=== PATIENT | female | born 1955 | race Two or more races ===

== ENCOUNTER 2018-06-20 12:56 | Inpatient (IN) | payer MEDICAID, OTHER | END 2018-06-26 18:30 | disposition home or self-care (01) | LOC: ER 12:56 → TELE 16:38 → TELE-WESTW 18:30 | DX: A41.9 Sepsis, unspecified organism (principal); K83.09 Other cholangitis; K85.10 Biliary acute pancreatitis without necrosis or infection; K80.00 Calculus of gallbladder with acute cholecystitis without obstruction; E44.0 Moderate protein-calorie malnutrition; R65.10 Systemic inflammatory response syndrome (SIRS) of non-infectious origin without acute organ dysfunction; E66.9 Obesity, unspecified; R73.9 Hyperglycemia, unspecified; Z68.30 Body mass index [BMI] 30.0-30.9, adult; N39.0 Urinary tract infection, site not specified; N18.3 Chronic kidney disease, stage 3 (moderate); E87.6 Hypokalemia ==

== ENCOUNTER 2018-07-27 01:44 | Inpatient (IN) | payer MEDICAID ==
[~2018-07-27] VITALS: Ht 152.4 cm; Wt 71.1 kg
[~2018-07-27 01:44] MED LIST: ACET-1156 PO
[2018-07-27 02:35] LABS: Basophils # (auto) 0 uL; Basophils % (auto) 0.5 % (0.0-2.0); Eosinophils # (auto) 0.1 uL; Eosinophils % (auto) 0.9 % (0.0-7.0); Hematocrit 36.3 % (36.0-46.0); Hemoglobin 12.2 g/dL (12.2-16.2); Lymphocytes # (auto) 2.5 uL; Lymphocytes % (auto) 33.6 % (10.0-50.0); Mean Corpuscular Hemoglobin 29.8 pg (28.0-32.0); Mean Corpuscular Hgb Conc. 33.7 g/dL (32.0-36.0); Mean Corpuscular Volume 88.3 fL (80.0-100.0); Monocytes # (auto) 0.3 uL; Monocytes % (auto) 4.4 % (0.0-12.0); Neutrophils # (auto) 4.4 uL; Neutrophils % (auto) 60.6 % (37.0-80.0); Nucleated Red Blood Cells % 0.1 %; Platelet Count (auto) 342 10^3/uL (140-450); Red Blood Cells 4.11 10^6/uL (4.0-5.20); Red Cell Distribution Width 15.5 % (11.8-14.3); White Blood Cell 7.3 10^3/uL (4.4-10.8)
[2018-07-27 02:52] LABS: Albumin 3.3 g/dL (3.4-5.0); Amylase 49 U/L (25-115); Anion Gap 10 (5-15); Blood Urea Nitrogen 15 mg/dL (7-18); Calcium 9.1 mg/dL (8.5-10.1); Carbon Dioxide 25 mmol/L (21-32); Chloride 104 mmol/L (98-107); Glucose 139 mg/dL (74-106); Lipase 294 U/L (73-393); Potassium 4.2 mmol/L (3.5-5.1); Sodium 139 mmol/L (136-145)
[2018-07-27 02:54] LABS: Alanine Aminotransferase 327 U/L (13-56); Aspartate Aminotransferase 681 U/L (15-37); BUN/Creatinine Ratio 18.1; GFR African American 89 mL/min; GFR Non-African American 74 mL/min
[2018-07-27 03:03] LABS: Alkaline Phosphatase 107 U/L (45-117); Bilirubin, Total 0.9 mg/dL (0.2-1.0); Total Protein 8.8 g/dL (6.4-8.2)
[2018-07-27] MEDS ORDERED: MORPHINE SULFATE 4 MG/ML SYR/VIAL IV ONE (06:00)
[2018-07-27] MEDS ORDERED: SODIUM CHLORIDE 0.9% 1,000 ML IV ONE (06:00)
[2018-07-27] MEDS ORDERED: ONDANSETRON HCL 4 MG/2 ML VIAL IV ONE (06:00)
[2018-07-27] MEDS ORDERED: HYDROmorphone HCL 2 MG/ML VL IV PRN (08:30)
[2018-07-27] MEDS ORDERED: ACETAMINOPHEN 325 MG TAB PO PRN (08:30)
[2018-07-27] MEDS ORDERED: ONDANSETRON HCL 4 MG/2 ML VIAL IV PRN (08:30)
[2018-07-27] MEDS ORDERED: MORPHINE SULF INJ 2 MG/ML SYRINGE 1ML IV PRN (08:30)
[2018-07-27] MEDS ORDERED: NITROGLYCERIN 0.4 MG SL TAB SL PRN (08:30)
[2018-07-27] MEDS ORDERED: IOHEXOL 300 MG/ML 100ML BOTTLE IJ ONE (08:48)
[2018-07-27] MEDS: D5W/SOD CHL 0.45%/KCL 20MEQ 1,000 ML IV SCH ×2 (09:16→18:30)
[2018-07-27 11:14] VITALS: BP 115/68
[2018-07-27] MEDS: LEVOFLOXACIN 750MG 150 ML IV SCH (11:52)
[2018-07-27] MEDS ORDERED: PROMETHAZINE HCL 25 MG/ML 1ML IV PRN (14:00)
[2018-07-27 14:05] VITALS: BP 115/68
[2018-07-27] MEDS: metroNIDAZOLE 500MG/100ML 100 ML IV SCH ×2 (14:18→22:24)
[2018-07-27 17:11] VITALS: BP 131/80
[2018-07-27 18:07] LABS: CRP High Sensitivity 0.92 mg/dL (< 0.3)
[2018-07-27] MEDS: MORPHINE SULFATE 4 MG/ML SYR/VIAL IV PRN (20:53)
[2018-07-27 22:00] VITALS: BP 121/68
[2018-07-28] MEDS: MORPHINE SULFATE 4 MG/ML SYR/VIAL IV PRN ×3 (02:49→21:19)
[2018-07-28] MEDS: D5W/SOD CHL 0.45%/KCL 20MEQ 1,000 ML IV SCH ×2 (05:50→16:46)
[2018-07-28] MEDS: metroNIDAZOLE 500MG/100ML 100 ML IV SCH ×3 (05:50→21:34)
[2018-07-28 06:06] VITALS: BP 108/67
[2018-07-28 06:09] LABS: Basophils # (auto) 0 uL; Basophils % (auto) 0.3 % (0.0-2.0); Eosinophils # (auto) 0 uL; Eosinophils % (auto) 0.4 % (0.0-7.0); Hemoglobin 9.9 g/dL (12.2-16.2); Lymphocytes # (auto) 1.3 uL; Lymphocytes % (auto) 23.6 % (10.0-50.0); Mean Corpuscular Hemoglobin 29.6 pg (28.0-32.0); Mean Corpuscular Hgb Conc. 33.1 g/dL (32.0-36.0); Mean Corpuscular Volume 89.5 fL (80.0-100.0); Monocytes # (auto) 0.2 uL; Neutrophils % (auto) 71.7 % (37.0-80.0); Platelet Count (auto) 269 10^3/uL (140-450); Red Blood Cells 3.35 10^6/uL (4.0-5.20); Red Cell Distribution Width 15.9 % (11.8-14.3); White Blood Cell 5.5 10^3/uL (4.4-10.8)
[2018-07-28 06:17] LABS: INR 1.08 (0.9-1.15); Partial Thromboplastin Time 23.5 sec (23.64-32.05)
[2018-07-28 06:30] LABS: Calcium 7.7 mg/dL (8.5-10.1); Potassium 3.7 mmol/L (3.5-5.1)
[2018-07-28 06:35] LABS: BUN/Creatinine Ratio 13.9
[2018-07-28 08:23] VITALS: BP 110/52
[2018-07-28] MEDS: LEVOFLOXACIN 750MG 150 ML IV SCH (12:08)
[2018-07-28] MEDS ORDERED: LIDOCAINE 2%HCL (LOCAL ANESTH.) INJ 20ML MDV ONE (12:14)
[2018-07-28 13:00] VITALS: BP 115/64
[2018-07-28 16:53] VITALS: BP 135/70
[2018-07-28 22:00] VITALS: BP 127/62
[2018-07-29] MEDS: D5W/SOD CHL 0.45%/KCL 20MEQ 1,000 ML IV SCH ×3 (00:12→16:42)
[2018-07-29] MEDS: MORPHINE SULFATE 4 MG/ML SYR/VIAL IV PRN ×5 (03:58→22:30)
[2018-07-29 05:00] VITALS: BP 114/60
[2018-07-29] MEDS: metroNIDAZOLE 500MG/100ML 100 ML IV SCH ×3 (05:32→21:34)
[2018-07-29 05:44] LABS: Basophils # (auto) 0 uL; Basophils % (auto) 0.3 % (0.0-2.0); Eosinophils # (auto) 0.1 uL; Eosinophils % (auto) 1.4 % (0.0-7.0); Hematocrit 31.8 % (36.0-46.0); Hemoglobin 10.6 g/dL (12.2-16.2); Lymphocytes % (auto) 27.9 % (10.0-50.0); Mean Corpuscular Hemoglobin 29.6 pg (28.0-32.0); Mean Corpuscular Hgb Conc. 33.3 g/dL (32.0-36.0); Mean Corpuscular Volume 88.8 fL (80.0-100.0); Monocytes # (auto) 0.4 uL; Monocytes % (auto) 5.3 % (0.0-12.0); Neutrophils # (auto) 4.8 uL; Neutrophils % (auto) 65.1 % (37.0-80.0); Platelet Count (auto) 287 10^3/uL (140-450); Red Blood Cells 3.58 10^6/uL (4.0-5.20); Red Cell Distribution Width 15.8 % (11.8-14.3); White Blood Cell 7.3 10^3/uL (4.4-10.8)
[2018-07-29 06:04] LABS: Albumin 2.5 g/dL (3.4-5.0); Calcium 8.2 mg/dL (8.5-10.1); Magnesium 2.4 mg/dL (1.6-2.6); Potassium 3.6 mmol/L (3.5-5.1)
[2018-07-29 06:06] LABS: BUN/Creatinine Ratio 9.4; Bilirubin, Total 0.7 mg/dL (0.2-1.0); Total Protein 6.8 g/dL (6.4-8.2)
[2018-07-29] MEDS ORDERED: IOHEXOL 300 MG/ML 100ML BOTTLE IJ ONE (06:48)
[2018-07-29 08:09] VITALS: BP 149/78
[2018-07-29] MEDS ORDERED: fentaNYL CITRATE 100 MCG/2 ML VL ONE (08:25)
[2018-07-29] MEDS ORDERED: MIDAZOLAM HCL 1MG/1ML-2 ML VIAL ONE (08:25)
[2018-07-29 09:07] LABS: Immunoglobulin G, Serum 1811 mg/dL (700-1600)
[2018-07-29] MEDS: LEVOFLOXACIN 750MG 150 ML IV SCH (10:00)
[2018-07-29] MEDS: PANTOPRAZOLE 40 MG TAB PO SCH (10:00)
[2018-07-29 12:34] VITALS: BP 143/86
[2018-07-29 16:36] VITALS: BP 140/82
[2018-07-29 22:00] VITALS: BP 145/79
[2018-07-30] MEDS: D5W/SOD CHL 0.45%/KCL 20MEQ 1,000 ML IV SCH ×2 (04:02→16:43)
[2018-07-30 04:53] VITALS: BP 129/82
[2018-07-30] MEDS: metroNIDAZOLE 500MG/100ML 100 ML IV SCH ×3 (05:31→21:32)
[2018-07-30 06:44] LABS: Albumin 2.7 g/dL (3.4-5.0); Bilirubin, Direct 0.3 mg/dL (0-0.2); Bilirubin, Total 0.5 mg/dL (0.2-1.0); Total Protein 7.1 g/dL (6.4-8.2)
[2018-07-30] MEDS: MORPHINE SULFATE 4 MG/ML SYR/VIAL IV PRN (07:44)
[2018-07-30 08:24] VITALS: BP 126/79
[2018-07-30] MEDS: LEVOFLOXACIN 750MG 150 ML IV SCH (09:16)
[2018-07-30] MEDS: PANTOPRAZOLE 40 MG TAB PO SCH (09:16)
[2018-07-30 11:43] VITALS: BP 152/79
[2018-07-30 16:08] VITALS: BP 121/73
[2018-07-30 22:00] VITALS: BP 140/78
[2018-07-31 05:02] VITALS: BP 136/79
[2018-07-31] MEDS: metroNIDAZOLE 500MG/100ML 100 ML IV SCH (05:31)
[2018-07-31 06:11] LABS: Hemoglobin 10.7 g/dL (12.2-16.2)
[2018-07-31 06:39] LABS: Albumin 2.8 g/dL (3.4-5.0); Bilirubin, Direct 0.2 mg/dL (0-0.2); Bilirubin, Total 0.4 mg/dL (0.2-1.0); Total Protein 7.3 g/dL (6.4-8.2)
[2018-07-31] MEDS: D5W/SOD CHL 0.45%/KCL 20MEQ 1,000 ML IV SCH (08:09)
[2018-07-31 09:00] VITALS: BP 135/69
[2018-07-31] MEDS: PANTOPRAZOLE 40 MG TAB PO SCH (10:17)
[2018-07-31] MEDS: LEVOFLOXACIN 750MG 150 ML IV SCH (10:18)
[2018-07-31] MEDS ORDERED: LEVO500T21 PO (12:30)
[2018-07-31] MEDS ORDERED: METR500T PO (12:30)
[2018-07-31 12:57] VITALS: BP 140/83
[2018-07-31 13:00] VITALS: BP 140/83
== END 2018-07-31 14:03 | disposition home or self-care (01) | DRG 952 ==
LOC: ER 01:46 → TELE-WESTW 08:41
PROVIDERS: ADMIT Nurse Practitioner Acute Care; ATTEND Internal Medicine
PROC: 07B13ZX Excision of Right Neck Lymphatic, Percutaneous Approach, Diagnostic (ICD-10-PCS; principal; 2018-07-27)
DX: K80.20 Calculus of gallbladder without cholecystitis without obstruction (principal); C79.51 Secondary malignant neoplasm of bone; E44.0 Moderate protein-calorie malnutrition; K76.0 Fatty (change of) liver, not elsewhere classified; E88.09 Other disorders of plasma-protein metabolism, not elsewhere classified; E66.9 Obesity, unspecified; Z85.3 Personal history of malignant neoplasm of breast; Z68.30 Body mass index [BMI] 30.0-30.9, adult; Z80.49 Family history of malignant neoplasm of other genital organs; Z80.8 Family history of malignant neoplasm of other organs or systems; Z85.42 Personal history of malignant neoplasm of other parts of uterus; Z85.819 Personal history of malignant neoplasm of unspecified site of lip, oral cavity, and pharynx; Z90.10 Acquired absence of unspecified breast and nipple; Z87.11 Personal history of peptic ulcer disease; Z92.21 Personal history of antineoplastic chemotherapy; Z92.3 Personal history of irradiation; Z88.6 Allergy status to analgesic agent; Z79.899 Other long term (current) drug therapy
CPT/HCPCS: 10022; 36415; 70491; 71045; 71260; 74176; 74181; 76705; 76881; 76942; 78226; 78306; 80048; 80053; 80076; 82105; 82150; 82232; 82378; 82784; 83615; 83690; 83735; 83883; 84132; 84155; 84165; 84484; 85014; 85018; 85025; 85610; 85652; 85730; 86141; 86300; 86301; 86304; 86334; 87081; 93005; 94761; 96361; 96365; 96375; G0378; J1956; J2250; J2405; J3490